=== PATIENT | female | born 1970 | race Caucasian/White ===

== ENCOUNTER 2025-06-07 08:14 | Day surgery (SDC) | payer BC, SELFPAY | END 2025-06-07 08:15 | disposition home or self-care (01) | LOC: GI 08:14 | PROVIDERS: ATTENDING PHYSICIAN Internal Medicine Gastroenterology; FAMILY PHYSICIAN Family Medicine | DX: Z12.11 Encounter for screening for malignant neoplasm of colon (principal); D12.3 Benign neoplasm of transverse colon; D12.4 Benign neoplasm of descending colon; D12.5 Benign neoplasm of sigmoid colon; K64.8 Other hemorrhoids; K57.30 Diverticulosis of large intestine without perforation or abscess without bleeding; Z86.0100 Personal history of colon polyps, unspecified | CPT/HCPCS: 45385; 45380; 88305 ==